=== PATIENT | male | born 1930 | race Caucasian/White ===

== ENCOUNTER → 2016-05-15 | Outpatient (CLI) | payer MEDICARE, OTHER | END | disposition home or self-care (01) | LOC: PCVCCLINIC 13:00 | PROVIDERS: ATTEND Internal Medicine Cardiovascular Disease | DX: I25.10 Atherosclerotic heart disease of native coronary artery without angina pectoris (principal); I25.5 Ischemic cardiomyopathy; I10 Essential (primary) hypertension; E78.00 Pure hypercholesterolemia, unspecified; I48.91 Unspecified atrial fibrillation | CPT/HCPCS: 93005; G0463 ==

== ENCOUNTER → 2016-11-12 | Outpatient (CLI) | payer MEDICARE, OTHER ==
--- NOTE | 2016-11-12 14:14 | PCVCIMAG ---
APPROVED REPORT Study performed: 11/12/2016 13:05:38 EXAM: Comprehensive 2D, Doppler, and color-flow Echocardiogram Patient Location: Echo lab Other Information Study Quality: Good Risk Factors: Cardiac Risk Factors: HTN, DM, Hyperlipidemia Indications Congestive Heart Failure Atrial Fibrillation CAD Cardiomyopathy Hypertension/HDD 2D Dimensions LVEF(%): 50.62 (>50%) IVSd: 10.98 (7-11mm)LVOT Diam: 20.12 (18-24mm) LVDd: 54.96 mm PWd: 9.47 (7-11mm)Ascending Ao: 35.48 (22-36mm) LVDs: 40.64 (25-40mm) Left Atrium: 56.56 (27-40mm) Aortic Root: 28.61 mm LV Single Plane 4CH: 46.11 % LV Single Plane 2CH: 43.13 %Bowen's LVEF: 44.62 % Biplane EF: 44.4 % Volumes Left Atrial Volume (Systole) Single Plane 4CH: 83.00 mLSingle Plane 2CH: 79.30 mL LA ESV Index: 43.00 mL/m2 Aortic Valve AoV Peak Coleman.: 1.64 m/s AO Peak Gr.: 10.82 mmHgLVOT Max P.36 mmHg LVOT Max V: 1.04 m/s MARY Vmax: 2.00 cm2 Mitral Valve E/A Ratio: 1.0 MV E Max Coleman.: 1.06 m/s MV A Coleman.: 1.02 m/s Pulmonary Valve PV Peak Gr.: 4.61 mmHg Tricuspid Valve TR Peak Coleman.: 3.37 m/sRAP Estimate: 7.00 mmHg TR Peak Gr.: 45.41 mmHg PA Pressure: 52.00 mmHg Left Ventricle The left ventricle is normal size. There is normal LV segmental wall motion. Borderline concentric left ventricular hypertrophy. There is mild LV systolic dysfunction. LVEF is 45%. This study is not technically sufficient to allow evaluation of the LV diastolic function due to atrial fibrillation. Right Ventricle The right ventricle is normal size. The right ventricular systolic function is normal. Atria Left atrium is moderately dilated. Right atrium is mildly dilated. Aortic Valve The Aortic valve is sclerotic. Trace aortic regurgitation. There is no aortic valvular stenosis. Mitral Valve The mitral valve is normal in structure. Mild to moderate mitral regurgitation. No evidence of mitral valve stenosis. Tricuspid Valve The tricuspid valve is normal in structure. Mild tricuspid regurgitation. Pulmonic Valve The pulmonary valve is normal in structure. There is no pulmonic valvular regurgitation. Great Vessels The aortic root is normal in size. IVC is normal in size and collapses >50% with inspiration. Pericardium There is no pericardial effusion. <Conclusion> The left ventricle is normal size. There is mild LV systolic dysfunction. The right ventricle is normal size. Left atrium is moderately dilated. Right atrium is mildly dilated. Trace aortic regurgitation. Mild to moderate mitral regurgitation. Mild tricuspid regurgitation.
== END | disposition home or self-care (01) ==
LOC: PCVCIMAG 12:35
PROVIDERS: ATTEND Internal Medicine Cardiovascular Disease
DX: I08.3 Combined rheumatic disorders of mitral, aortic and tricuspid valves (principal); I44.7 Left bundle-branch block, unspecified; I25.10 Atherosclerotic heart disease of native coronary artery without angina pectoris; I48.91 Unspecified atrial fibrillation; E78.00 Pure hypercholesterolemia, unspecified; I13.0 Hypertensive heart and chronic kidney disease with heart failure and stage 1 through stage 4 chronic kidney disease, or unspecified chronic kidney disease; I25.5 Ischemic cardiomyopathy; I50.9 Heart failure, unspecified; E11.9 Type 2 diabetes mellitus without complications; E03.9 Hypothyroidism, unspecified; E78.5 Hyperlipidemia, unspecified; Z87.891 Personal history of nicotine dependence; Z79.82 Long term (current) use of aspirin
CPT/HCPCS: 93005; 93306; G0463

== ENCOUNTER → 2017-06-10 | Outpatient (CLI) | payer MEDICARE, OTHER ==
[~2017-06-10] MED LIST: REGADENOSON 0.4 MG/5 ML DISP.SYRIN. IV
== END | disposition home or self-care (01) ==
LOC: PCVCIMAG 12:09
DX: I25.10 Atherosclerotic heart disease of native coronary artery without angina pectoris (principal); I48.91 Unspecified atrial fibrillation; I10 Essential (primary) hypertension; E78.00 Pure hypercholesterolemia, unspecified; I25.2 Old myocardial infarction; Z79.82 Long term (current) use of aspirin; Z79.899 Other long term (current) drug therapy; Z87.891 Personal history of nicotine dependence
CPT/HCPCS: 78452; 93005; 93017; A9500; G0463; J2785

== ENCOUNTER → 2017-12-09 | Outpatient (CLI) | payer MEDICARE, OTHER | END | disposition home or self-care (01) | LOC: PCVCCLINIC 14:33 | PROVIDERS: ATTEND Internal Medicine Cardiovascular Disease | DX: I25.10 Atherosclerotic heart disease of native coronary artery without angina pectoris (principal); I48.91 Unspecified atrial fibrillation; I10 Essential (primary) hypertension; E78.00 Pure hypercholesterolemia, unspecified; Z87.891 Personal history of nicotine dependence; Z79.899 Other long term (current) drug therapy; Z79.82 Long term (current) use of aspirin | CPT/HCPCS: 93005; G0463 ==

== ENCOUNTER → 2018-07-15 | Outpatient (CLI) | payer MEDICARE, OTHER ==
--- NOTE | 2018-07-15 16:10 | PCVCIMAG ---
APPROVED REPORT Study performed: 07/15/2018 13:07:36 EXAM: Comprehensive 2D, Doppler, and color-flow Echocardiogram Patient Location: Echo lab Room #: [id number]: routine BSA: 2.03 HR: 48 bpmBP: 122/56 mmHg Rhythm: Atrial Fibrillation, bradycardia Other Information Study Quality: Good Risk Factors: Cardiac Risk Factors: Hyperlipidemia, DM Indications CAD Cardiomyopathy S/P stent LAD, Circ 2D Dimensions IVSd: 8.76 (7-11mm)LVOT Diam: 20.33 (18-24mm) LVDd: 58.35 mm PWd: 8.49 (7-11mm)Ascending Ao: 34.51 (22-36mm) LVDs: 44.35 (25-40mm) Left Atrium: 48.85 (27-40mm) Aortic Root: 26.60 mm LV Single Plane 4CH: 44.62 % LV Single Plane 2CH: 57.90 % Biplane EF: 51.9 % Volumes Left Atrial Volume (Systole) Single Plane 4CH: 109.75 mLSingle Plane 2CH: 84.61 mL Biplane LA Volume: 103.00 mLLA ESV Index: 51.00 mL/m2 Aortic Valve AoV Peak Coleman.: 1.42 m/s AO Peak Gr.: 8.04 mmHgLVOT Max P.35 mmHg LVOT Max V: 1.01 m/s MARY Vmax: 2.32 cm2 AI Vmax: 3.55 m/s AI [place]: 1.64 m/s2 AI PHT: 626.18 ms Mitral Valve MV E Max Coleman.: 0.94 m/s MV PHT: 51.59 ms MVA (PHT): 4.26 cm2 IVRT: 80.74 ms TDI E/Lateral E': 5.88E/Medial E': 13.43 Medial E' Coleman.: 0.07 m/s Lateral E' Coleman.: 0.16 m/s Pulmonary Valve PV Peak Coleman.: 1.20 m/sPV Peak Gr.: 5.73 mmHg Tricuspid Valve TR Peak Coleman.: 3.14 m/s TR Peak Gr.: 39.53 mmHg TV Vmax: 0.82 m/sPA Pressure: 47.00 mmHg Left Ventricle Left ventricle is mildly dilated. There is normal LV segmental wall motion. There is normal left ventricular wall thickness. Left ventricular systolic function is normal. The left ventricular ejection fraction is within the normal range. LVEF is 50-55%. This study is not technically sufficient to allow evaluation of the LV diastolic function due to atrial fibrillation. Right Ventricle The right ventricle is normal size. The right ventricular systolic function is normal. Atria Left atrium is moderately dilated. Right atrium is moderately dilated. Aortic Valve Aortic valve is trileaflet. Mild aortic regurgitation. There is no aortic valvular stenosis. Mitral Valve The mitral valve is normal in structure. Moderate mitral regurgitation No evidence of mitral valve stenosis. Tricuspid Valve The tricuspid valve is normal in structure. Moderate tricuspid regurgitation with a PA pressure of 47 mmHg. There is moderate pulmonary hypertension. Pulmonic Valve The pulmonary valve is normal in structure. There is no pulmonic valvular regurgitation. Great Vessels The aortic root is normal in size. IVC is normal in size and collapses >50% with inspiration. Pericardium There is no pericardial effusion. There is no pleural effusion. <Conclusion> Left ventricle is mildly dilated. Left ventricular systolic function is normal. The right ventricle is normal size. Left atrium is moderately dilated. Right atrium is moderately dilated. Mild aortic regurgitation. Moderate mitral regurgitation Moderate tricuspid regurgitation with a PA pressure of 47 mmHg. There is moderate pulmonary hypertension.
== END | disposition home or self-care (01) ==
LOC: PCVCIMAG 12:56
PROVIDERS: ATTEND Internal Medicine Cardiovascular Disease
DX: I08.3 Combined rheumatic disorders of mitral, aortic and tricuspid valves (principal); I25.10 Atherosclerotic heart disease of native coronary artery without angina pectoris; I42.9 Cardiomyopathy, unspecified; I48.91 Unspecified atrial fibrillation; E78.00 Pure hypercholesterolemia, unspecified; E78.5 Hyperlipidemia, unspecified; E03.9 Hypothyroidism, unspecified; I13.0 Hypertensive heart and chronic kidney disease with heart failure and stage 1 through stage 4 chronic kidney disease, or unspecified chronic kidney disease; E11.22 Type 2 diabetes mellitus with diabetic chronic kidney disease; I50.9 Heart failure, unspecified; N18.9 Chronic kidney disease, unspecified; Z79.82 Long term (current) use of aspirin; Z87.891 Personal history of nicotine dependence
CPT/HCPCS: 93005; 93306; G0463

== ENCOUNTER → 2019-01-19 | Outpatient (CLI) | payer MEDICARE, OTHER | END | disposition home or self-care (01) | LOC: PCVCCLINIC 13:45 | PROVIDERS: ATTEND Internal Medicine Cardiovascular Disease | DX: I25.10 Atherosclerotic heart disease of native coronary artery without angina pectoris (principal); I48.91 Unspecified atrial fibrillation; E78.00 Pure hypercholesterolemia, unspecified; I13.0 Hypertensive heart and chronic kidney disease with heart failure and stage 1 through stage 4 chronic kidney disease, or unspecified chronic kidney disease; I50.9 Heart failure, unspecified; N18.9 Chronic kidney disease, unspecified; E03.9 Hypothyroidism, unspecified; E78.5 Hyperlipidemia, unspecified; Z87.891 Personal history of nicotine dependence; Z72.89 Other problems related to lifestyle; Z79.82 Long term (current) use of aspirin; Z79.899 Other long term (current) drug therapy | CPT/HCPCS: 93005; G0463 ==